=== PATIENT | female | born 1985 | race Caucasian/White ===

== ENCOUNTER 2018-03-10 17:37 | Emergency (ER) | payer OTHER ==
[2018-03-10 17:51] VITALS: TEMP 98; BMI 38.4
--- NOTE | 2018-03-10 18:31 | PDOC ---
History of Present Illness - History of Present Illness Initial Comments: This patient is a 32 year old female, with PMHx of spinal stenosis, recently diagnosed sleep apnea (getting Bipap), acid reflux, anxiety and panic attacks, who present to the ED with 1 week of atypical chest discomfort and left leg pain. She states that her chest pain is midsternal, pulling, non-exertional in nature, not improved by position, intermittent, and radiates to back occasionally. She describes her left calf pain like a wellington horse in nature. She states that she saw her PCP 3 days ago who did a D-dimer and doppler which both came back normal. She states that the chest pain and left leg pain has not dissipated and she just worried about a possible blood clot. She denies nausea, vomiting, diarrhea. She denies smoking history, recent control use, recent surgeries, personal or family history of blood clots, recent travel. Denies recent leg swelling. Allergies: amoxicillin, tramadol Surgical Hx: cholecystectomy (Apr 2017) Social Hx: Denies ETOH, cigarette, or illicit drug use. Family Hx: Father (has h/o heart failure), Maternal aunt ( of heart attack in 50's). <Latosha Perez - Last Filed: 03/10/18 19:36> <Gen Sparks - Last Filed: 03/11/18 00:05> - General Chief Complaint: Chest Pain Stated Complaint: CHEST PAIN, CALF PAIN Time Seen by Provider: 03/10/18 18:31 Past History <Latosha Perez - Last Filed: 03/10/18 19:36> - Past Medical History COPD: No - Suicide/Smoking/Psychosocial Hx Smoking History: Never smoked Hx Alcohol Use: No Drug/Substance Use Hx: No <Gen Sparks - Last Filed: 03/11/18 00:05> - Past Medical History Allergies/Adverse Reactions: Allergies Allergy/AdvReac Type Severity Reaction Status Date / Time amoxicillin Allergy Verified 03/10/18 17:51 tramadol [From Ultram] Allergy Verified 03/10/18 17:51 Home Medications: Ambulatory Orders NK [No Known Home Medication] 03/10/18 Review of Systems - Review of Systems Comments:: Constitutional: no recent illness; no fever ENT: no sore throat Cardiovascular: no palpitations; +chest discomfort. Pulmonary: no cough; no trouble breathing Gastrointestinal: No nausea; no vomiting; no diarrhea Genitourinary: No urinary problems; no hematuria Skin: No rash Lymph system: No swollen glands Musculoskeletal: +left leg pain. No joint swelling Neurological: No weakness; No numbness; No headache; no vertigo; no lightheadedness Psychiatric:+ h/o anxiety <Latosha Perez - Last Filed: 03/10/18 19:36> *Physical Exam - Vital Signs Last Vital Signs Temp Pulse Resp BP Pulse Ox 98.0 F 93 H 18 152/93 97 03/10/18 17:48 03/10/18 17:48 03/10/18 17:48 03/10/18 17:48 03/10/18 17:48 - Physical Exam Comments: Vitals: Triage Vital signs reviewed General Appearance: no acute distress, well nourished well developed Head: Atraumatic Neck: Supple; No Nuchal rigidity Chest Wall: Nontender Cardiac: Regular rate and rhythm, no murmurs, no rubs, no gallops Lungs: Clear to auscultation bilateral, good air movement bilaterally Extremities: Full range of motion to all extremities, no cyanosis, clubbing, or edema Skin: Warm and dry, no rashes or lesions, no rash, no petechiae Neuro: AOX3; Strength intact to all extremities, Sensation intact to all extremities, gait normal <Latosha Perez - Last Filed: 03/10/18 19:36> - Vital Signs Last Vital Signs Temp Pulse Resp BP Pulse Ox 98.0 F 93 H 18 152/93 97 03/10/18 17:48 03/10/18 17:48 03/10/18 17:48 03/10/18 17:48 03/10/18 17:48 <Gen Sparks - Last Filed: 03/11/18 00:05> Moderate Sedation - Procedure Monitoring Vital Signs: Procedure Monitoring Vital Signs Temperature 98.0 F 03/10/18 17:48 Pulse Rate 93 H 03/10/18 17:48 Respiratory Rate 18 03/10/18 17:48 Blood Pressure 152/93 03/10/18 17:48 O2 Sat by Pulse Oximetry (%) 97 03/10/18 17:48 <Latosha Perez - Last Filed: 03/10/18 19:36> - Procedure Monitoring Vital Signs: Procedure Monitoring Vital Signs Temperature 98.0 F 03/10/18 17:48 Pulse Rate 93 H 03/10/18 17:48 Respiratory Rate 18 03/10/18 17:48 Blood Pressure 152/93 03/10/18 17:48 O2 Sat by Pulse Oximetry (%) 97 03/10/18 17:48 <Gen Sparks - Last Filed: 03/11/18 00:05> Heart Score/ECG Review - History History: Slightly suspicious - Electrocardiogram EKG: Normal - Age Age: </= 45 - Risk Factors Based on the list above the patient has:: 1-2 risk factors - Troponin Troponin: </= normal limit - Score Heart Score - Total: 1 - ECG Impressions Comment:: 03/11/18 00:02 EKG performed at 1743 demonstrates normal sinus rhythm [address] elevations or T-wave inversions Interpreted by me. <Gen Sparks - Last Filed: 03/11/18 00:05> ED Treatment Course - LABORATORY CBC & Chemistry Diagram: 03/10/18 19:00 03/10/18 19:00 - ADDITIONAL ORDERS Additional order review: 03/10/18 19:00 RBC 5.01 MCV 75.6 L MCHC 33.4 RDW 15.8 H MPV 7.1 L Neutrophils % 67.0 Lymphocytes % 20.4 Monocytes % 6.7 Eosinophils % 5.5 H Basophils % 0.4 <Latosha Perez - Last Filed: 03/10/18 19:36> - LABORATORY CBC & Chemistry Diagram: 03/10/18 19:00 03/10/18 19:00 <Gen Sparks - Last Filed: 03/11/18 00:05> Medical Decision Making - Medical Decision Making 03/10/18 20:33 This patient is a 32 year old female, with PMHx of spinal stenosis, recently diagnosed sleep apnea (getting Bipap), acid reflux, anxiety and panic attacks, who present to the ED with 1 week of atypical chest discomfort and left leg pain. She states that her chest pain is midsternal, pulling, non-exertional in nature, not improved by position, intermittent, and radiates to back occasionally. She describes her left calf pain like a wellington horse in nature. She states that she saw her PCP 3 days ago who did a D-dimer and doppler which both came back normal. She states that the chest pain and left leg pain has not dissipated and she just worried about a possible blood clot. 03/10/18 20:53 \ She is negative for PE by [facility] criteria , she has a nonischemic EKG. Her heart score is 1 her troponin is negative Her Doppler was negative for DVT Findings, the need for follow-up, strict return instructions discussed with patient. <Gen Sparks - Last Filed: 03/11/18 00:05> *DC/Admit/Observation/Transfer - Attestations Scribe Attestion: 03/10/18 19:35 Documentation prepared by Latosha Perez, acting as certified medical coding specialist for Gen Sparks MD. <Latosha Perez - Last Filed: 03/10/18 19:36> - Discharge Dispostion Decision to Admit order: No <Gen Sparks - Last Filed: 03/11/18 00:05> Diagnosis at time of Disposition: Atypical chest pain - Discharge Dispostion Disposition: HOME - Patient Instructions Printed Discharge Instructions: DI for Atypical Chest Pain Additional Instructions: Drink plenty fluids. Alternate Tylenol and Motrin as needed for pain. Follow-up with her doctor next week. Return to the emergency department for any severe worsening symptoms or for any concerns.
[2018-03-10 19:13] LABS: BASO % 0.4 % (0-2.0); EOS % 5.5 % (0-4.5); HEMATOCRIT 37.8 % (32.4-45.2); HEMOGLOBIN 12.6 GM/dL (10.7-15.3); LYMPH % 20.4 % (8-40); MCH 25.2 pg (25.7-33.7); MCHC 33.4 g/dl (32.0-36.0); MEAN CELL VOLUME 75.6 fl (80-96); MEAN PLT VOLUME 7.1 fl (7.5-11.1); MONO % 6.7 % (3.8-10.2); PLATELET COUNT 289 K/MM3 (134-434); RBC 5.01 M/mm3 (3.60-5.2); RDW 15.8 % (11.6-15.6); WHITE BLOOD COUNT 8.7 K/mm3 (4.0-10.0)
[2018-03-10 19:50] LABS: ALBUMIN 3.7 g/dl (3.4-5.0); ALK PHOS 77 U/L (45-117); ANION GAP 8 MMOL/L (8-16); BILIRUBIN,TOTAL 0.3 mg/dL (0.2-1); BLOOD UREA NITROGEN 11 mg/dL (7-18); CALCIUM 8.8 mg/dL (8.5-10.1); CHLORIDE 106 mmol/L (98-107); CO2 24 mmol/L (21-32); CREATININE 0.7 mg/dL (0.55-1.3); GLUCOSE,RANDOM 93 mg/dL (74-106); SGOT/AST 19 U/L (15-37); SGPT/ALT 52 U/L (13-61); SODIUM 138 mmol/L (136-145); TOT PROT 7.2 g/dl (6.4-8.2)
[2018-03-10 20:13] LABS: URINE APPEARANCE CLEAR; URINE BILIRUBIN NEGATIVE (<2.0 mg/dL); URINE COLOR LTYELLOW; URINE GLUCOSE (UA) NEGATIVE (NEGATIVE); URINE KETONE NEGATIVE (NEGATIVE); URINE LEUK ESTERASE NEGATIVE (NEGATIVE); URINE NITRITE NEGATIVE (NEGATIVE); URINE PROTEIN NEGATIVE (NEGATIVE); URINE UROBILINOGEN NEGATIVE mg/dL (0.2-1.0)
[2018-03-10 20:16] LABS: EPI CELLS RARE /HPF (FEW); URINE BACTERIA RARE /hpf (NONE SEEN); URINE MUCUS RARE
[2018-03-10 20:55] VITALS: BP 121/72; PULSE 80
--- NOTE | 2018-03-11 16:50 | EKG ---
Test Reason : Blood Pressure : / mmHG Vent. Rate : 100 BPM Atrial Rate : 100 BPM P-R Int : 192 ms QRS Dur : 090 ms QT Int : 360 ms P-R-T Axes : 054 065 046 degrees QTc Int : 464 ms NORMAL SINUS RHYTHM LEFT ATRIAL ENLARGEMENT SEPTAL INFARCT , AGE UNDETERMINED ABNORMAL ECG NO PREVIOUS ECGS AVAILABLE Confirmed by MD DAVID, DANICA ([id number]) on 03/11/2018 4:50:33 PM Referred By: Confirmed By:DANICA HERNANDEZ MD
== END 2018-03-10 20:57 | disposition home or self-care (01) ==
LOC: JER 17:37
DX: R07.9 Chest pain, unspecified (principal); K21.9 Gastro-esophageal reflux disease without esophagitis; F41.9 Anxiety disorder, unspecified; F41.0 Panic disorder [episodic paroxysmal anxiety]; M48.00 Spinal stenosis, site unspecified; G47.39 Other sleep apnea
CPT/HCPCS: 36415; 80053; 81003; 81015; 84484; 84702; 85025; 93005; 93010; 93971-TC; 99283-25